=== PATIENT | male | born 1990 | race Caucasian/White ===

== ENCOUNTER → 2020-08-26 | Outpatient (CLI) | payer OTHER ==
--- NOTE | 2020-08-26 08:44 | PDOC1 ---
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 Patient reports since that time he had significant pain in the low back occasional radiation of the right posterior gluteus and thigh but mostly in the back itself patient reports is constant sharp shooting across the back and into the right side and hip radiating patient is been treated in the past with facet medial branch blocks facet joint injections as well as radiofrequency ablation which helped for about 10 months by his estimation. Patient reports she had that in November 2019 and the pain is just now returning patient reports the pain was very similar to that as he has now patient reports he has had chiropractic treatment as well as exercise physical therapy which is not significantly helpful patient is taking only [id number] ibuprofen at this time with only minimal decrease in pain patient reports the pain is radiating across the back into the right hip worse with walking standing changing position especially getting up from a seated position bending twisting and extension of the lumbar spine especially. Patient reports its impeding his daily activities reports his disability rating 0-10 10 being worst is a 5 with family home responsibilities occupation self-care and life support activities 6 with sexual behavior/activity and 7 with recreational activities. Patient's diagnostic studies are pending at [facility] and have been requested. Patient reports a loss of motor quads with significant fatigability the right lower extremity with activity. PAST MEDICAL HISTORY: PMH: Deviated septum PREVIOUS SURGERIES: Past Surgical Hx: Deviated septum repair 2019 CURRENT MEDICATIONS: Current Meds: Active Scripts Medications Dose Route/Sig Max Daily Dose Days Date Category No Known Medications Prior To Admisstion (Info) Each 1 Each MC 1X 08/26/20 Reported ALLERGIES; Allergies: Coded Allergies: No Known Drug Allergies (Unverified , 08/26/20) FAMILY HISTORY: Family Hx: No major medical problems or conditions he is aware of. SOCIAL HISTORY: Social Hx: Patient is nondrug alcohol does not smoke or use any illegal illicit recreational drugs is single is active duty in the custody REVIEW OF SYSTEMS: ROS: Positive for those items mentioned in history of present illness, all systems are reviewed, otherwise negative ,and are complete full and well-documented on patient's chart. PHYSICAL EXAM: VS: Blood pressure is 140/73 pulse 58 respirations 18 temperature 98.2 F height 6 foot weight is 231 pounds PE: PHYSICAL EXAMINATION: GENERAL: The patient is awake, alert, oriented, appropriate, pleasant demeanor HEENT: Shows normocephalic, atraumatic. Extraocular movements are intact and symmetrical. Oral cavity: Mucous membranes moist and pink. Dentition is intact . NECK: Shows anterior throat supple without palpable lymphadenopathy noted. Swallow reflex symmetrical. CHEST: Shows normal on inspection. Breath sounds are clear bilaterally, no rales rhonchi wheezes auscultated. HEART: Shows S1, S2 clear. No murmurs auscultated. ABDOMEN: Soft, nontender, nondistended. No palpable organomegaly is noted. No rebound or guarding demonstrated. BACK: Shows spine grossly in the midline. Normal-appearing cervical lordotic curvature. There is slightly increased thoracic kyphosis, some minor flattening of the lumbar lordotic curvature. Lumbar paraspinous muscles show symmetrical on inspection, on palpation shows some moderate tenderness diffusely throughout the upper, middle and lower distribution of the paraspinous muscles bilaterally and also into the lower thoracic paraspinous musculature, firm and tender, but without specific trigger points, without radiation of pain. The patient has good rotational motion of the lumbar spine, both laterally as well as extension and flexion with significant tenderness with extension and axial loading of the lumbar spine as well as right lateral rotation greater than 10 degrees left lateral rotation is only mildly tender and forward flexion is performed at 45 degrees without significant difficulty or pain reported. No tenderness over the spinous processes, sacrum or sacroiliac regions. EXTREMITIES: Lower extremities show deep tendon reflexes 2+ in the patellar and tendo calcaneus tendons. Motor exam is 5 on a scale of 5 with right dorsifl exion, extension, quadriceps and hamstring flexion and 5/5 on the left. Peripheral pulses are 1 posterior tibial. No peripheral edema is noted bilaterally. Lower extremities are warm and dry to touch, equal in color and appearance. Straight leg raise noted to be mildly positive at about 45 degrees, left side is negative. Gaenslen's and Anatoly's maneuvers are negative bilater ally as well. The patient is able to stand, stand on his toes that significant difficulty or loss of balance. SKIN: Shows warm and dry, good turgor. No edema. No sores, rashes or bruising throughout. IMPRESSION: Impression: 29-year-old male with long history of injury active duty with low back pain right lower extremity pain Previous radiofrequency ablation right side with good results Pending diagnostic studies. Plan: Options were discussed with the patient including conservative medical management continued physical therapies interventional techniques. Patient likes interventional techniques as he has had good results with these in the past. We discussed right-sided lumbar facet medial branch blocks and will await preauthorization with patient's insurance carrier. Once approved we will plan on right-sided L4-5 and L5-S1 medial branch facet blocks with fluoroscopic guidance. ROSIBEL JUNG MD Aug 26, 2020 08:44
== END | disposition home or self-care (01) ==
LOC: EEVIPCON 08:00 → PNCL 08:06
PROVIDERS: ATTEND Anesthesiology
DX: M54.5 Low back pain (principal); M79.604 Pain in right leg; J34.2 Deviated nasal septum; Z79.899 Other long term (current) drug therapy
CPT/HCPCS: 99205; G0463

== ENCOUNTER → 2020-09-28 | Outpatient (CLI) | payer OTHER ==
[~2020-09-28] MED LIST: BUPIVACAINE MPF 0.25% 10 ML VIAL. ONE; IOHEXOL 180 MG/ML 10 ML VIAL. ONE; MELA3TAB4 PO; methylPREDNISolone ACETATE 40 MG/ML VIAL. ONE; methylPREDNISolone ACETATE 80 MG/ML VIAL. ONE
--- NOTE | 2020-09-28 08:52 | PDOC ---
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 Patient reports still significant pain in the low back now starting to have some pain in his right lower extremity as well but mainly just in the hip patient reports is posterior and has had this before and when he had radiofrequency ablation which has been twice in the last 2 years at once each November he did very well and the pain resolved in the back and the leg patient reports his pain is 8 on scale 10 is worse over the past week 6 on average 5 its least is a 5 today patient ports sharp and shooting stabbing can be constant and severe mostly in the right side low back with standing walking changing positions sitting for prolonged periods wakes him from sleep occasionally although he is taking melatonin which helps him sleep. Patient reports only new finding of more radiating pain into the leg instead of the low back as on previous exam. Patient reports no loss of motor function no bowel or bladder incontinence. Physical Exam: VS: Blood pressure is 126/82 pulse 66 respirations are 18 weight is 223 pounds. PE: PHYSICAL EXAMINATION: GENERAL: Patient in custody. The patient is awake, alert, oriented, appropriate, very pleasant in demeanor HEENT: Shows normocephalic, atraumatic. Extraocular movements are intact and symmetrical. Oral cavity: Mucous membranes moist and pink. Dentition is intact. NECK: Shows anterior throat supple without palpable lymphadenopathy noted. Swallow reflex symmetrical. CHEST: Shows normal on inspection. Breath sounds are clear bilaterally, no rales or rhonchi. HEART: Shows S1, S2 clear. No murmurs auscultated. ABDOMEN: Soft, nontender, nondistended. No palpable organomegaly is noted. BACK: Shows spine grossly in the midline. Normal-appearing cervical lordotic curvature. There is slightly increased thoracic kyphosis, some minor flattening of the lumbar lordotic curvature. Lumbar paraspinous muscles show symmetrical on inspection, on palpation shows some moderate tenderness diffusely throughout the upper, middle and lower distribution of the paraspinous muscles but without specific trigger points, without radiation of pain. The patient has good rotational motion of the lumbar spine, both laterally as well as extension and flexion with significant tenderness with extension of the lumbar spine on the right side only and right lateral rotation greater than 10 degrees with significant pain on the right side left rotation elicits no pain nor does forward flexion 45 degrees was performed without difficulty. No tenderness over the spinous processes, sacrum or sacroiliac regions. EXTREMITIES: Lower extremities show deep tendon reflexes 2+ in the patellar and tendo calcaneus tendons. Motor exam is 5 on a scale of 5 with right do rsiflexion, extension, quadriceps and hamstring flexion and 5/5 on the left. Peripheral pulses are 1+ posterior tibial. No peripheral edema is noted bilaterally. Lower extremities are warm and dry to touch, equal in color and appearance. SKIN: Shows warm and dry, good turgor. No edema. No sores, rashes or bruising throughout. Procedure: Procedure: Options were discussed with patient. Patient chart was reviewed his current medication regimen updated current review of systems updated today as well. We will proceed with right-sided L4-5 and L5-S1 medial branch facet blocks today with fluoroscopic guidance. Risks were discussed including but not limited to: Bleeding, infection, possibility of epidural hematoma and subsequent neurological compromise, dural puncture, headaches, spinal cord and/or nerve damage, side effects of steroid medication, and poor results regarding pain control. Patient understands and wished to proceed. Patient will return to clinic in approximately 4 weeks for follow-up, was counseled as to return appointment active level and side effects beware. With patient's history of significant improvement after radiofrequency ablation we will preauthorize patient for radiofrequency on next visit as this will need to be coordinated with his institution. Medication Injected: Med Injected: Under sterile prep and drape using C-arm fluoroscopic guidance AP and lateral and oblique views, right L4-5 and L5-S1 facet joint MB's injections were performed, using quinke needles with stylette's x2,, medications injected: 120 mg Depo-Medrol +2 cc 0.25% bupivacaine +1 cc contrast. Condition at discharge stable patient tolerated the procedure well and no complications. Condition at Discharge: Condition at Discharge: Condition at discharge is stable, patient tolerated the procedure well and had no complications. ROSIBEL JUNG MD Sep 28, 2020 08:52
--- NOTE | 2020-09-28 08:53 | PDOC4 ---
Procedure Note: ICD 10 Code: ICD 10 Code: M4 7.816 M4 7.817 Procedure Note: Patient was consented for right side L4-5 and L5-S1 medial branch facet blocks with fluoroscopic guidance. Risks were discussed including but not limited to: Bleeding, infection, possibility of epidural hematoma and subsequent neurological compromise, dural puncture, headaches, spinal cord and/or nerve damage, side effects of steroid medication, and poor results regarding pain control. Patient understands and wished to proceed. Under sterile prep and drape using C-arm fluoroscopic guidance AP and lateral and oblique views, right L4-5 and L5-S1 facet joint MB's injections were performed, using quinke needles with stylette's x2,, medications injected: 120 mg Depo-Medrol +2 cc 0.25% bupivacaine +1 cc contrast. Condition at discharge stable patient tolerated the procedure well and no complications. ROSIBEL JUNG MD Sep 28, 2020 08:53
== END ==
LOC: PNCL 07:34 → EEVIPCON 08:00
PROVIDERS: ATTEND Anesthesiology
DX: M47.817 Spondylosis without myelopathy or radiculopathy, lumbosacral region (principal); M51.37 Other intervertebral disc degeneration, lumbosacral region
CPT/HCPCS: 64493; 64494; J1030; J1040; J3490; Q9965

== ENCOUNTER → 2020-11-29 | Outpatient (CLI) | payer OTHER ==
[~2020-11-29] MED LIST changes: -IOHEXOL 180 MG/ML 10 ML VIAL. ONE; +LIDOCAINE 2% PF 5 ML VIAL. ONE
--- NOTE | 2020-11-29 09:19 | PDOC ---
Progress Note - Pain Clinic Date of Service: DOS: DATE: 11/29/20 TIME: 09:12 Diagnosis: Dx: Lumbar and lumbosacral spondylosis History or Present Illness: HPI: 30-year-old male returns for follow-up status post right L4-5 and L5-S1 medial branch facet injections with good results patient reports 90% improvement for the first month pain returning now on both sides of the low back right and the left at this time right pain radiating into the gluteus but not into the lower extremity any further patient reports still significant pain across both sides and his left side is as painful as the right side currently with standing walking changing position especially with extension lumbar spine axial loading of the low back patient rates pain as a 7 on scale 10 is worse over the past week 6 on average 4 to sleep and is a 6 today patient tried the sharp and shooting pain the low back across the low back radiating into the right and left side with cramping stabbing pain in the back as well again worse with standing and walking better with sitting but does awaken from sleep at least once or twice a night. Patient reports no new bowel or bladder incontinence no new motor deficits. Physical Exam: VS: Blood pressure is 118/69 pulse 67 respiration 16 temperature 98.3 F height is 6 foot weight is 216 pounds PE: PHYSICAL EXAMINATION: GENERAL: The patient is awake, alert, oriented, appropriate, very pleasant demeanor, patient in custody HEENT: Shows normocephalic, atraumatic. Extraocular movements are intact and symmetrical. Oral cavity: Mucous membranes moist and pink. Dentition is intact. NECK: Shows anterior throat supple without palpable lymphadenopathy noted. Swallow reflex symmetrical. CHEST: Shows normal on inspection. Breath sounds are clear bilaterally, no rales rhonchi wheezes auscultated. HEART: Shows S1, S2 clear. No murmurs auscultated. ABDOMEN: Soft, nontender, nondistended. No palpable organomegaly is noted. BACK: Shows spine grossly in the midline. Normal-appearing cervical lordotic curvature. There is slightly increased thoracic kyphosis, some minor flattening of the lumbar lordotic curvature. Lumbar paraspinous muscles show symmetrical on inspection, on palpation shows some moderate tenderness diffusely throughout the upper, middle and lower distribution of the paraspinous muscles without specific trigger points, without radiation of pain. The patient has good rotational motion of the lumbar spine, both laterally as well as extension and flexion with significant pain with extension and axial loading lumbar spine both right and left low back better with forward flexion 45 degrees was performed without difficulty right and left lateral rotation shows moderate tenderness bilaterally in the low back itself again without radiation at 10 degrees right and left lateral rotation. No tenderness over the spinous processes, sacrum or sacroiliac regions. EXTREMITIES: Lower extremities show deep tendon reflexes 2+ in the patellar and tendo calcaneus tendons. Motor exam is 5 on a scale of 5 with right dorsiflexion, extension, quadriceps and hamstring flexion and 5/5 on the left. Peripheral pulses are 2+ posterior tibial. No peripheral edema is noted bilaterally. Lower extremities are warm and dry to touch, equal in color and appearance. SKIN: Shows warm and dry, good turgor. No edema. No sores, rashes or bruising throughout. Procedure: Procedure: Options were discussed with the patient. Patient chart reviewed his current medication regimen updated current review of systems updated today as well. We will proceed with bilateral radiofrequency ablation the right and left L4-5 and L5-S1 medial branch facets with fluoroscopic guidance. Risks were discussed including but not limited to: Bleeding, infection, possibility of epidural hematoma and subsequent neurological compromise, dural puncture, headaches, spinal cord and/or nerve damage, potential thermal damage to the surrounding structures as well as motor nerves with permanent ischemic damage, side effects of steroid medication, and poor results regarding pain control. Patient understands and wished to proceed. Patient return to clinic in approximately 4 weeks for follow-up, was counseled as return appointment, activity level, and s nadine effects to be aware of. Medication Injected: Med Injected: Under sterile prep and drape patient in prone position using C-arm fluoroscopic guidance patient's lumbar spine was visualized in both AP oblique and lateral vi ews using 1% lidocaine to topically anesthetize the areas overlying the L3-4, L4-5 and L5-S1 facet joints at the point of the medial branches. Using a 22- gauge insulated radiofrequency needle with curved tips and stylette, the needles were advanced to contact the region of the facet with the medial branch targets. This was repeated at the L3-4 L4-5 and L5-S1 levels. Stylette was removed and using radiofrequency probe inserted into each needle individually at each level and then motor tested with no motor stimulation of the lower extremity. Patient did have some multifidus musculature contraction in the lumbar spine only but without radiation. At this time 1 cc of 2% lidocaine was then injected in each needle after motor testing but prior to radiofrequency ablation. Needle position was confirmed continuously throughout the radiofrequency ablation with both AP oblique and lateral views at each level. At this time radiofrequency ablation was carried out each level for 60 seconds at 80 C x 2 at each level with the tip of the needle turned 90 degrees after the first 60 seconds and then subsequent 60 seconds of radiofrequency ablation. Once radiofrequency ablation was completed solution containing 0.25% bupivacaine 1 cc and 20 mg Depo-Medrol was injected each level. Needle was then withdrawn. The procedure was repeated for the contralateral side as described as well. Patient had no paresthesias throughout the procedure no radiation of pain into the lower extremities no lower extremity motor response with motor testing bilaterally. Please see radiofrequency flowsheet for levels, temperatures, impedance, etc. Condition at Discharge: Condition at Discharge: Condition at discharge stable, paced tolerated procedure well and had no complications. ROSIBEL JUNG MD Nov 29, 2020 09:19
== END | disposition home or self-care (01) ==
LOC: PNCL 07:41 → EEVIPCON 08:00
PROVIDERS: ATTEND Anesthesiology
DX: M47.816 Spondylosis without myelopathy or radiculopathy, lumbar region (principal); M47.817 Spondylosis without myelopathy or radiculopathy, lumbosacral region; Z79.899 Other long term (current) drug therapy
CPT/HCPCS: J1030; J1040; J3490; 64635-50; 64636-50

== ENCOUNTER → 2021-01-18 | Outpatient (CLI) | payer OTHER ==
[~2021-01-18] MED LIST changes: -BUPIVACAINE MPF 0.25% 10 ML VIAL. ONE; -LIDOCAINE 2% PF 5 ML VIAL. ONE; -methylPREDNISolone ACETATE 40 MG/ML VIAL. ONE; -methylPREDNISolone ACETATE 80 MG/ML VIAL. ONE
--- NOTE | 2021-01-18 08:12 | PDOC ---
Progress Note - Pain Clinic Date of Service: DOS: DATE: 01/18/21 TIME: 08:09 Diagnosis: Dx: Lumbar and lumbosacral spondylosis History or Present Illness: HPI: 30-year-old male returns for follow-up status post bilateral radiofrequency ablation lumbar L4-5 and L5-S1 medial branches. Patient reports he did very well about 80% improvement in the pain in the right side is essentially gone still some pain in the mid low back but only very minimal patient reports it was sore for about a week to 2 weeks after the procedure but after that the pain began to reduce significantly patient reports the pain in the right leg is completely gone rates his pain as a 2 on scale 10 on average and worst and is a 0 its least is a 2 today patient reports its in the low back described as dull worse with standing and walking patient reports he is sleeping better at night increase his activity doing distance walking to work activities as well as sleeping better patient reports no new motor or sensory deficits no bowel or bladder incontinence. Physical Exam: VS: Blood pressure is 124/75 pulse 66 respirations are 18 temperature 97.8 F weight is 210 pounds PE: PHYSICAL EXAMINATION: GENERAL: The patient is awake, alert, oriented, appropriate, very pleasant in demeanor HEENT: Shows normocephalic, atraumatic. Extraocular movements are intact and symmetrical. Oral cavity: Mucous membranes moist and pink. Dentition is intact. NECK: Shows anterior throat supple without palpable lymphadenopathy noted. Swallow reflex symmetrical. CHEST: Shows normal on inspection. Breath sounds are clear bilaterally, distant no rales or rhonchi. HEART: Shows S1, S2 clear. No murmurs auscultated. ABDOMEN: Soft, nontender, nondistended. No palpable organomegaly is noted. BACK: Shows spine grossly in the midline. Normal-appearing cervical lordotic curvature. There is slightly increased thoracic kyphosis, some minor flattening of the lumbar lordotic curvature. Lumbar paraspinous muscles show symmetrical on inspection, on palpation shows some moderate tenderness diffusely throughout the upper, middle and lower distribution of the paraspinous muscles, but without specific trigger points, without radiation of pain. The patient has good rotational motion of the lumbar spine, both laterally as well as extension and flexion with only very minimal pain with extension not with forward flexion or right and left lateral rotation was performed fully. EXTREMITIES: Lower extremities show deep tendon reflexes 2+ in the patellar and tendo calcaneus tendons. Motor exam is 5 on a scale of 5 with right dorsiflexion, extension, quadriceps and hamstring flexion and 5/5 on the left. Peripheral pulses are 1+ posterior tibial. No peripheral edema is noted bilaterally. Lower extremities are warm and dry. SKIN: Shows warm and dry, good turgor. No edema. No sores, rashes or bruising throughout. Procedure: Procedure: Options were discussed with patient. Patient chart was reviewed his current medication regimen updated current review of systems updated today as well. We will have patient follow-up with us on an as-needed basis doing quite a bit better after the radiofrequency ablation. Patient was shown some stretching and strength exercises to do on his own to keep the muscles stretched and condition in the low back. Medication Injected: Med Injected: None Condition at Discharge: Condition at Discharge: Condition at discharge is stable. ROSIBEL JUNG MD Jan 18, 2021 08:12
== END | disposition home or self-care (01) ==
LOC: PNCL 07:44 → EEVIPCON 08:00
PROVIDERS: ATTEND Anesthesiology
DX: M47.816 Spondylosis without myelopathy or radiculopathy, lumbar region (principal); M47.817 Spondylosis without myelopathy or radiculopathy, lumbosacral region; Z79.899 Other long term (current) drug therapy
CPT/HCPCS: 99212; G0463